=== PATIENT | female | born 1940 | race Asian ===

== ENCOUNTER 2017-01-30 09:58 | Emergency (ER) | payer MEDICARE ==
[~2017-01-30] VITALS: Ht 154.9 cm; Wt 56.8 kg
[~2017-01-30 09:58] MED LIST: AMLO5TAB66 PO; CALC-51 PO; CIME400T PO; LISI40TA4 PO; MULT1TAB PO
[2017-01-30 10:27] LABS: BASOPHILS # (AUTO) 0.05 K/uL (0.00-0.20); BASOPHILS % (AUTO) 1.1 % (0.0-2.0); EOSINOPHILS # (AUTO) 0.34 K/uL (0.00-0.70); EOSINOPHILS % (AUTO) 7.48 % (1.0-6.0); HEMATOCRIT 36.9 % (36-46); HEMOGLOBIN 12.5 g/dL (12.0-16.0); LYMPHOCYTES # (AUTO) 1.4 K/uL (1.0-4.8); LYMPHOCYTES % (AUTO) 31.2 % (22.0-44.0); MEAN CORPUSCULAR HEMOGLOBIN 30.7 pg (26.0-34.0); MEAN CORPUSCULAR HGB CONC 33.8 G/dL (31.0-37.0); MEAN CORPUSCULAR VOLUME 91 fL (80-100); MONOCYTES # (AUTO) 0.5 K/uL (0.1-1.0); MONOCYTES % (AUTO) 9.7 % (2.0-9.0); NEUTROPHILS # (AUTO) 2.3 K/uL (1.8-7.7); NEUTROPHILS % (AUTO) 50.5 % (40.0-70.0); PLATELET COUNT (AUTO) 231 K/uL (150-450); RED BLOOD CELL COUNT(AUTO) 4.07 MIL/uL (4.00-5.20); RED CELL DISTRIBUTION WIDTH 14.2 % (11.5-14.5); WHITE BLOOD COUNT (AUTO) 4.6 K/uL (4.5-11.0)
[2017-01-30 12:00] LABS: APPEARANCE,URINE CLEAR (CLEAR); GLUCOSE, URINE (UA) NEGATIVE (NEGATIVE); KETONES,URINE NEGATIVE (NEGATIVE); LEUKOCYTE ESTERASE ,URINE NEGATIVE (NEGATIVE); OCCULT BLOOD,URINE NEGATIVE (NEGATIVE); PH,URINE 7.5 (5.0-8.0); PROTEIN,URINE NEGATIVE (NEGATIVE)
[2017-01-30 12:06] LABS: ADD UA MICROSCOPIC NO
[2017-01-30 12:44] VITALS: BP 129/87
[2017-01-30] MEDS ORDERED: ACYCLOVIR 200 MG CAPSULE PO ONE (12:45)
[2017-01-30] MEDS ORDERED: TraMADol HCL 50 MG TABLET PO ONE (12:45)
== END 2017-01-30 12:53 | disposition home or self-care (01) ==
LOC: EMS 10:00
DX: B02.9 Zoster without complications (principal); I10 Essential (primary) hypertension; M81.0 Age-related osteoporosis without current pathological fracture
CPT/HCPCS: 99284

== ENCOUNTER 2017-01-31 16:14 | Emergency (ER) | payer MEDICARE ==
[~2017-01-31] VITALS: Ht 154.9 cm; Wt 55.0 kg
[~2017-01-31 16:14] MED LIST changes: -CIME400T PO
[2017-01-31] MEDS ORDERED: SODIUM CHLORIDE 0.9% 1,000 ML IV ONE (19:45)
[2017-01-31 20:40] VITALS: BP 132/69
== END 2017-01-31 21:12 | disposition home or self-care (01) ==
LOC: EMS 16:17
DX: R53.83 Other fatigue (principal); B02.9 Zoster without complications; I10 Essential (primary) hypertension
CPT/HCPCS: 96360; 99284; J7030

== ENCOUNTER 2017-10-16 11:31 | Emergency (ER) | payer MEDICARE ==
[~2017-10-16] VITALS: Ht 152.4 cm; Wt 57.3 kg
[~2017-10-16 11:31] MED LIST changes: +CALC-1038 PO; -CALC-51 PO
[2017-10-16 13:48] VITALS: BP 133/74
== END 2017-10-16 14:40 | disposition home or self-care (01) ==
LOC: EMS 11:32
DX: S09.8XXA Other specified injuries of head, initial encounter (principal); I10 Essential (primary) hypertension; M81.0 Age-related osteoporosis without current pathological fracture; Z87.442 Personal history of urinary calculi; Z79.899 Other long term (current) drug therapy; W18.39XA Other fall on same level, initial encounter; Y93.89 Activity, other specified; Y92.89 Other specified places as the place of occurrence of the external cause; Y99.8 Other external cause status
CPT/HCPCS: 70450; 99284

== ENCOUNTER 2018-11-21 14:49 | Emergency (ER) | payer MEDICARE ==
[~2018-11-21] VITALS: Ht 152.4 cm; Wt 77.3 kg
[2018-11-21] MEDS ORDERED: HYDROCODONE/ACETAMINOPHEN 5-325 MG TABLET PO ONE (16:45)
[2018-11-21] MEDS ORDERED: MORPHINE SULFATE 4 MG/ML SYRINGE IM ONE (19:15)
[2018-11-21] MEDS ORDERED: ONDANSETRON HCL 4 MG/2 ML VIAL IM ONE (19:15)
[2018-11-21 21:01] LABS: BASOPHILS % (AUTO) 0.7 % (0.0-2.0); EOSINOPHILS % (AUTO) 0.3 % (1.0-6.0); HEMATOCRIT 37.1 % (36-46); HEMOGLOBIN 11.9 g/dL (12.0-16.0); LYMPHOCYTES # (AUTO) 1.7 K/uL (1.0-4.8); LYMPHOCYTES % (AUTO) 14.3 % (22.0-44.0); MEAN CORPUSCULAR HEMOGLOBIN 29.7 pg (26.0-34.0); MEAN CORPUSCULAR HGB CONC 32.2 G/dL (31.0-37.0); MEAN CORPUSCULAR VOLUME 92 fL (80-100); MONOCYTES # (AUTO) 0.5 K/uL (0.1-1.0); MONOCYTES % (AUTO) 4.3 % (2.0-9.0); NEUTROPHILS # (AUTO) 9.7 K/uL (1.8-7.7); NEUTROPHILS % (AUTO) 80.4 % (40.0-70.0); PLATELET COUNT (AUTO) 219 K/uL (150-450); RED BLOOD CELL COUNT(AUTO) 4.03 MIL/uL (4.00-5.20); RED CELL DISTRIBUTION WIDTH 13.6 % (11.5-14.5)
[2018-11-21 21:12] LABS: ANION GAP 6 mmol/L (8-16); CALCIUM, TOTAL 8.8 mg/dL (8.8-10.5); CARBON DIOXIDE 30 mmol/L (22-29); CHLORIDE 101 mmol/L (98-107); CREATININE 0.77 mg/dL (0.60-1.30); GLUCOSE,RANDOM 117 mg/dL (70-110); SODIUM SERUM 137 mmol/L (136-145); UREA NITROGEN, BLOOD 18 mg/dL (7-18)
[2018-11-21 21:13] LABS: GLOMERULAR FILTR. RATE CALC > 60 mL/min (>60)
[2018-11-21 21:37] LABS: ALANINE AMINOTRANSFERASE 21 U/L (12-78); ALBUMIN 3.1 g/dL (3.4-5.0); ALKALINE PHOSPHATASE 92 U/L (46-116); ASPARTATE AMINOTRANSFERASE 21 U/L (15-37); BILIRUBIN,TOTAL 0.2 mg/dL (0.1-1.0); CREATINE KINASE, TOTAL ONLY 129 U/L (26-192); TOTAL PROTEIN, SERUM 7.5 g/dL (6.4-8.2)
[2018-11-22] MEDS ORDERED: MORPHINE SULFATE 2 MG/ML SYRINGE IVP ONE ×2 (00:30→05:00)
[2018-11-22 02:54] LABS: GLUCOSE,POINT OF CARE 132 MG/DL (70-110)
[2018-11-22 04:31] VITALS: BP 142/70
== END 2018-11-22 05:13 | disposition short-term general hospital (02) ==
LOC: EMS 14:50
DX: S22.41XA Multiple fractures of ribs, right side, initial encounter for closed fracture (principal); M19.90 Unspecified osteoarthritis, unspecified site; F41.9 Anxiety disorder, unspecified; I10 Essential (primary) hypertension; Z79.899 Other long term (current) drug therapy; W18.09XA Striking against other object with subsequent fall, initial encounter; Y93.89 Activity, other specified; Y92.89 Other specified places as the place of occurrence of the external cause; Y99.8 Other external cause status
CPT/HCPCS: 36415; 71046; 80053; 82550; 82962; 84484; 85025; 93005; 96372; 96374; 96376; 99285; J2270 ×2; J2405